=== PATIENT | male | born 1940 | race Caucasian/White ===

== ENCOUNTER 2018-03-17 18:19 | Observation (INO) | END 2018-03-19 15:02 | disposition home or self-care (01) ==

== ENCOUNTER 2019-01-23 13:05 | Inpatient (IN) | payer MEDICARE, OTHER ==
[~2019-01-23] VITALS: Ht 165.1 cm; Wt 67.8 kg
[~2019-01-23 13:05] MED LIST: ACET-141 PO; ACET-2047 PO; ACET325T45 PO; ATOR20TA38 PO; BISA10SU55 RC; BISA10SU75 PR; CALC667C PO; CALC667T2 PO; CHOL100062 PO; CHOL200078 PO; CINA30TA4 PO; CINA60TA PO; CLOP75TA27 PO; CPR3OO3.5 RIGHT EYE; DICL2.5D11 RIGHT EYE; FAMO20TA18 PO; FER325 PO; GABA100C14 PO; GABA300C16 PO; LANS30CA PO; LIDOCAINE 5% OINT TOP; LOPE-123 PO; MAGN400O19 PO; MIDO10TA PO; MINE133E23 PR; MIRT15TA5 PO; NA P133E3 RC; NEPH PO; ONDA4TAB14 PO; ONDA4TAB95 PO; OXYC20TA41 PO; OXYC5CAP17 PO; PETR113O TOP; POLY17PO28 PO; PRED5DRO20 RIGHT EYE; SEVE800T7 PO; TIZA2TAB PO
[2019-01-23] MEDS ORDERED: SOD CHLORIDE 0.9% 250 ML IV STA (13:35)
[2019-01-23] MEDS ORDERED: ONDANSETRON 4 MG INJ IV STA (14:00)
[2019-01-23] MEDS ORDERED: NALOXONE 2 MG SYG IV ONE (14:00)
[2019-01-23] MEDS ORDERED: SOD CHLORIDE 0.9% 1,000 ML IV STA (14:25)
[2019-01-23] MEDS ORDERED: CEFEPIME 1GM/50 ML (PMX) 50 ML IVPB ONE (17:00)
[2019-01-23] MEDS ORDERED: SOD CHLORIDE 0.9% 1,000 ML IV SCH (19:48)
[2019-01-23] MEDS ORDERED: DOCUSATE SODIUM 100 MG CAP PO PRN (20:00)
[2019-01-23] MEDS ORDERED: ACETAMINOPHEN 325 MG TAB PO PRN (20:00)
[2019-01-23] MEDS ORDERED: morphine 2 MG INJ IV PRN (20:00)
[2019-01-23] MEDS ORDERED: MINERAL OIL 133 ML ENEMA PR PRN (20:00)
[2019-01-23] MEDS ORDERED: ZOLPIDEM 5 MG TAB PO PRN (20:00)
[2019-01-23] MEDS ORDERED: ONDANSETRON 4 MG INJ IV PRN (20:00)
[2019-01-23] MEDS ORDERED: BISACODYL 10 MG SUPP PR PRN (20:00)
[2019-01-23] MEDS ORDERED: MAGNESIUM HYDROXIDE 30ML CUP PO PRN (20:00)
[2019-01-23] MEDS ORDERED: NACL 0.9% 3 ML SYG IV SCH (20:00)
[2019-01-23] MEDS: ALBUMIN HUMAN 25% 100 ML IV SCH (21:39)
[2019-01-23] MEDS: CALCIUM ACETATE 667 MG CAP PO SCH (21:40)
[2019-01-23] MEDS: MIRTAZAPINE 15 MG TAB PO SCH (21:40)
[2019-01-23] MEDS: DICLOFENAC 0.1% 2.5 ML OPH RIGHT EYE SCH (21:40)
[2019-01-23] MEDS: TIZANIDINE 2 MG TAB PO SCH (21:40)
[2019-01-23] MEDS: GABAPENTIN 300 MG CAP PO SCH (21:40)
[2019-01-23] MEDS: CEFTRIAXONE 1 GM/50 ML (PMX) 50 ML IVPB SCH (21:48)
[2019-01-23] MEDS: SEVELAMER CARBONATE 0.8 GM PKT PO SCH (21:48)
[2019-01-23] MEDS ORDERED: SOD CHLORIDE 0.9% 1,000 ML IV ONE (23:00)
[2019-01-23] MEDS ORDERED: FENTAnyl 50 MCG/ML VIAL IV ONE (23:00)
[2019-01-24] VITALS (43 sets, daily range): BP systolic 91–147; BP diastolic 34–134; PULSE 48–89; RESP 10–24; Ht 165.1 cm; Wt 67.8 kg
[2019-01-24] MEDS: HYDROCODONE/APAP (5/325) TAB PO PRN ×2 (00:49→19:03)
[2019-01-24] MEDS: ALBUMIN HUMAN 25% 100 ML IV SCH ×2 (05:12→13:32)
[2019-01-24] MEDS: ACCU-CHEK XX SCH ×4 (07:05→20:58)
[2019-01-24] MEDS: CINACALCET 30 MG TAB PO SCH (10:20)
[2019-01-24] MEDS: CLOPIDOGREL 75 MG TAB PO SCH (10:20)
[2019-01-24] MEDS: TIZANIDINE 2 MG TAB PO SCH (10:20)
[2019-01-24] MEDS: MULTIVIT/CA CARB/B CMPLX/FA TAB PO SCH (10:20)
[2019-01-24] MEDS: GABAPENTIN 300 MG CAP PO SCH ×3 (10:21→20:55)
[2019-01-24] MEDS: SEVELAMER CARBONATE 0.8 GM PKT PO SCH ×3 (10:21→21:55)
[2019-01-24] MEDS: CALCIUM ACETATE 667 MG CAP PO SCH ×3 (10:21→20:56)
[2019-01-24] MEDS ORDERED: TIZANIDINE 2 MG TAB PO PRN (11:30)
[2019-01-24] MEDS: DICLOFENAC 0.1% 2.5 ML OPH RIGHT EYE SCH ×4 (13:00→20:56)
[2019-01-24] MEDS: MIRTAZAPINE 15 MG TAB PO SCH (20:56)
[2019-01-24] MEDS: CEFTRIAXONE 1 GM/50 ML (PMX) 50 ML IVPB SCH (20:56)
[2019-01-25] VITALS (8 sets, daily range): BP systolic 99–154; BP diastolic 40–68; PULSE 59–70; RESP 12–19
[2019-01-25] MEDS: ACCU-CHEK XX SCH ×4 (07:25→20:26)
[2019-01-25] MEDS: SEVELAMER CARBONATE 0.8 GM PKT PO SCH ×3 (08:27→20:18)
[2019-01-25] MEDS: MULTIVIT/CA CARB/B CMPLX/FA TAB PO SCH (08:28)
[2019-01-25] MEDS: CLOPIDOGREL 75 MG TAB PO SCH (08:29)
[2019-01-25] MEDS: CINACALCET 30 MG TAB PO SCH (08:29)
[2019-01-25] MEDS: CALCIUM ACETATE 667 MG CAP PO SCH ×3 (08:30→20:18)
[2019-01-25] MEDS: GABAPENTIN 300 MG CAP PO SCH ×3 (08:30→20:18)
[2019-01-25] MEDS ORDERED: MIDODRINE 5 MG TAB PO SCH (09:00)
[2019-01-25] MEDS: DICLOFENAC 0.1% 2.5 ML OPH RIGHT EYE SCH ×4 (09:00→20:25)
[2019-01-25] MEDS: MIRTAZAPINE 15 MG TAB PO SCH (20:18)
[2019-01-25] MEDS: CEFTRIAXONE 1 GM/50 ML (PMX) 50 ML IVPB SCH (20:25)
[2019-01-26] VITALS (16 sets, daily range): BP systolic 80–166; BP diastolic 46–69; PULSE 63–88; RESP 17–70
[2019-01-26] MEDS: ACCU-CHEK XX SCH ×4 (07:52→22:47)
[2019-01-26] MEDS: MULTIVIT/CA CARB/B CMPLX/FA TAB PO SCH (10:01)
[2019-01-26] MEDS: CLOPIDOGREL 75 MG TAB PO SCH (10:01)
[2019-01-26] MEDS: CINACALCET 30 MG TAB PO SCH (10:01)
[2019-01-26] MEDS: CALCIUM ACETATE 667 MG CAP PO SCH ×3 (10:02→22:13)
[2019-01-26] MEDS: SEVELAMER CARBONATE 0.8 GM PKT PO SCH ×3 (10:02→22:12)
[2019-01-26] MEDS: GABAPENTIN 300 MG CAP PO SCH ×3 (10:02→22:13)
[2019-01-26] MEDS: DICLOFENAC 0.1% 2.5 ML OPH RIGHT EYE SCH ×4 (10:02→22:12)
[2019-01-26] MEDS ORDERED: LEVOFLOXACIN 500 MG TAB PO ONE (11:00)
[2019-01-26] MEDS ORDERED: FOSFOMYCIN 3 GM PACKET PO ONE (11:00)
[2019-01-26] MEDS ORDERED: MIDODRINE 5 MG TAB PO ONE (20:30)
[2019-01-26] MEDS ORDERED: MIDODRINE 10 MG TABLET PO ONE (20:30)
[2019-01-26] MEDS ORDERED: MIDODRINE 2.5 MG TAB PO ONE (20:30)
[2019-01-26] MEDS ORDERED: ALBUMIN HUMAN 25% 100 ML IV ONE (20:30)
[2019-01-26] MEDS: MIRTAZAPINE 15 MG TAB PO SCH (22:12)
[2019-01-26] MEDS: CEFTRIAXONE 1 GM/50 ML (PMX) 50 ML IVPB SCH (22:13)
== END 2019-01-26 23:30 | disposition home or self-care (01) | DRG 871 ==
LOC: E/R 13:05 → ICU 17:08 → EDBEDREQSVC 21:33 → EDBEDREQTM 01-24 00:52 → EDBEDREQDT 01-24 00:52 → EDBEDREQ 01-24 00:52 → EDBEDREQSVC 01-24 01:41 → EDBEDREQTM 01-24 01:41 → TEL 01-25 02:11
PROVIDERS: ADMIT Internal Medicine; ATTEND Family Medicine
PROC: 06HY33Z Insertion of Infusion Device into Lower Vein, Percutaneous Approach (ICD-10-PCS; principal; 2019-01-24)
DX: A41.9 Sepsis, unspecified organism (principal); N18.6 End stage renal disease; R65.21 Severe sepsis with septic shock; N39.0 Urinary tract infection, site not specified; E87.2 Acidosis; R00.1 Bradycardia, unspecified; E87.5 Hyperkalemia; I25.10 Atherosclerotic heart disease of native coronary artery without angina pectoris; I25.2 Old myocardial infarction; E11.51 Type 2 diabetes mellitus with diabetic peripheral angiopathy without gangrene; Z87.891 Personal history of nicotine dependence; D53.9 Nutritional anemia, unspecified; E83.89 Other disorders of mineral metabolism; Z89.512 Acquired absence of left leg below knee; Z89.511 Acquired absence of right leg below knee
CPT/HCPCS: 36415; 71045; 80048; 80053; 81001; 82607; 82746; 82962; 83036; 83605; 83690; 83735; 84100; 84484; 85025; 85049; 85610; 85670; 85730; 87081; 87340; 90935; 93005; 93306; 96374; 96375; A4310; J0692; J0696; J2310; J2405; J7030; J7040; J7070; P9047; P9612